=== PATIENT | male | born 1970 | race Caucasian/White ===

== ENCOUNTER 2018-11-25 09:02 | Emergency (ER) | payer OTHER ==
[~2018-11-25] VITALS: Wt 131.0 kg
[2018-11-25] MEDS ORDERED: IBUPROFEN 600 MG TAB PO ONE (10:00)
[2018-11-25] MEDS ORDERED: IBUP-1542 PO (10:40)
[2018-11-25 11:01] VITALS: BP 153/76; PULSE 76; RESP 19
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
== END 2018-11-25 11:02 | disposition home or self-care (01) ==
LOC: FTE 09:02
DX: M77.32 Calcaneal spur, left foot (principal); F17.210 Nicotine dependence, cigarettes, uncomplicated
CPT/HCPCS: 73610; 73630; Z7502; Z7610